=== PATIENT | female | born 1995 | race Caucasian/White ===

== ENCOUNTER 2017-04-29 11:27 | Emergency (ER) | END 2017-04-29 15:38 | disposition home or self-care (01) ==

== ENCOUNTER 2017-11-26 04:38 | Emergency (ER) | END 2017-11-26 05:29 | disposition home or self-care (01) ==

== ENCOUNTER 2017-12-03 19:37 | Emergency (ER) | END 2017-12-03 22:20 | disposition home or self-care (01) ==

== ENCOUNTER 2017-12-16 12:15 | Emergency (ER) | END 2017-12-16 14:08 | disposition home or self-care (01) ==

== ENCOUNTER 2018-01-20 19:53 | Emergency (ER) | END 2018-01-20 21:17 | disposition home or self-care (01) ==

== ENCOUNTER 2018-04-18 10:54 | Emergency (ER) | END 2018-04-18 11:30 | disposition home or self-care (01) ==

== ENCOUNTER 2018-07-08 09:45 | Emergency (ER) | payer OTHER ==
[~2018-07-08] VITALS: Ht 167.6 cm; Wt 53.0 kg
[~2018-07-08 09:45] MED LIST: ACET500C5 PO; AMOX1TAB10 PO; CEFA500T PO; CEPH-443 PO; CIPR500T4 PO; DIC20 PO; FLUT9.9S NASAL; NITR-58 PO; ONDA4TAB14 PO; OSEL75CA23 PO; PHEN-538 PO; PSEU-79 PO; PSEU120T11 PO
[2018-07-08 09:56] VITALS: Ht 167.6 cm; Wt 53.0 kg
[2018-07-08] MEDS ORDERED: ONDANSETRON 4 MG INJ IV STA (10:31)
[2018-07-08] MEDS ORDERED: LIDOCAINE/MYLANTA 40 ML BTL PO STA (10:31)
[2018-07-08] MEDS ORDERED: SOD CHLORIDE 0.9% 1,000 ML IV STA (10:31)
[2018-07-08] MEDS ORDERED: FAMOTIDINE 20 MG INJ IV STA (10:31)
--- NOTE | 2018-07-08 10:46 | ERD ---
ER Documentation Chief Complaint Chief Complaint Complains of abdominal pain x 3 days HPI This is a 23-year-old female with a nonsignificant past medical history presents ED with epigastric abdominal pain that is been off and on for the past 2 months. Patient states that it has worsened in the past 4 days. Patient states the pain is constant and rates it at a 5 out of 10 pain. Patient was seen by her front office representative Dr. Jiménez last week and was prescribed clarithromycin, amoxicillin and Biaxin for H. pylori infection. The H. pylori infection was confirmed by her front office representative. Patient has not called her gastroent erologist since pain is been worsening. Admits to nausea with multiple episodes of vomiting as well as nonbloody diarrhea. Denies fever, chills, cough, congestion, runny nose, hematemesis, hemoptysis, melena, hematochezia, constipation. Is due to have an endoscopy at the end of October. No known drug allergies. ROS All systems reviewed and are negative except as per history of present illness. Medications Home Meds Active Scripts Fluticasone Propionate (Flonase Allergy Relief) 9.9 Ml [place].susp, 1 SPRAY NASAL DAILY, #1 BOTTLE TO EACH NOSTRIL Prov:YUMIKO DAMON PA-C 04/18/18 Pseudoephedrine Hcl* (Suphedrin*) 30 Mg Tablet, 30 MG PO Q6 PRN for CONGESTION, #30 TAB Prov:YUMIKO DAMON PA-C 04/18/18 Amoxicillin/Potassium Clav (Amox-Clav 875-125 mg Tablet) 875-125 mg Tab, 1 TAB PO BID for 7 Days, #14 TAB Prov:YUMIKO DAMON PA-C 04/18/18 Nitrofurantoin Monohyd Macrocr* (Macrobid*) 100 Mg Capsr, 100 MG PO BID for 5 Days, CAP Prov:OZIEL HERNÁNDEZ PA-C 01/20/18 Pseudoephedrine Hcl (Sudafe 12-Hour) 120 Mg Tablet.er, 120 MG PO BID PRN for CONGESTION for 7 Days, TAB.SA Prov:MYLES WAYNE PA-C 12/16/17 Amoxicillin/Potassium Clav (Amox-Clav 875-125 mg Tablet) 875-125 mg Tab, 1 TAB PO BID for 7 Days, #14 TAB Prov:MYLES WAYNE PA-C 12/16/17 Cefaclor (Cefaclor ER) 500 Mg Tab.sr.12h, 500 MG PO BID for 7 Days, #14 TAB Prov:RYNE SINGER MD 12/05/17 Nitrofurantoin Monohyd Macrocr* (Macrobid*) 100 Mg Capsr, 100 MG PO BID for 14 Days, CAP Prov:RYNE SINGER MD 12/05/17 Cephalexin* (Keflex*) 500 Mg Capsule, 500 MG PO QID for 5 Days, CAP Prov:SARAH BAR PA-C 12/03/17 Ondansetron (Ondansetron Odt) 4 Mg Tab.rapdis, 4 MG PO Q6H PRN for NAUSEA AND/OR VOMITING, #20 TAB Prov:MANUEL GRAYSON NP 11/26/17 Dicyclomine HCl (Dicyclomine HCl) 20 Mg Tablet, 1 TAB PO Q6, #20 Prov:MANUEL GRAYSON NP 11/26/17 Phenazopyridine Hcl* (Pyridium*) 200 Mg Tab, 200 MG PO TID PRN for URINARY PAIN, #6 TAB Prov:MANUEL GRAYSON NP 11/26/17 Ciprofloxacin Hcl* (Ciprofloxacin Hcl*) 500 Mg Tablet, 500 MG PO BID for 10 Days, TAB Prov:MANUEL GRAYSON NP 11/26/17 Oseltamivir Phosphate* (Tamiflu*) 75 Mg Capsule, 75 MG PO BID for 5 Days, CAP Prov:MAAME SOSA PA-C 04/29/17 Acetaminophen* (Tylophen*) 500 Mg Capsule, 1 CAP PO Q6H PRN for PAIN AND OR ELEVATED TEMP, #20 CAP Prov:MAAME SOSA PA-C 04/29/17 Ondansetron (Ondansetron Odt) 4 Mg Tab.rapdis, 4 MG PO Q6H PRN for NAUSEA AND/OR VOMITING, #10 TAB Prov:MAAME SOSA PA-C 04/29/17 Allergies Allergies: Coded Allergies: No Known Allergy (Unverified , 04/18/18) PMhx/Soc History of Surgery: Yes (nasal surgery) Hx Respiratory Disorders: Yes (asthma) Hx Miscellaneous Medical Probl: Yes (gastritis) Hx Alcohol Use: No Hx Substance Use: No Hx Tobacco Use: No FmHx Family History: No diabetes Physical Exam Vitals Vital Signs Date Temp Pulse Resp B/P (MAP) Pulse Ox O2 O2 Flow FiO2 Time Delivery Rate 07/08/18 98.1 94 20 120/92 100 09:56 (101) Physical Exam Physical Exam Vitals signs: Reviewed by me. General: Well developed, well nourished, in no acute distress. Patient is awake and alert. Head: Normocephalic, atraumatic. Eyes: Normal conjunctiva, Pupils PERRLA, EOM intact grossly ENT: Pharynx is clear, Moist mucous membranes, external ears, nose and mouth normal Neck: Supple, no masses, lymphadenopathy or JVD Respiratory: Clear to auscultation bilaterally with no wheezing, rhonchi, rales, no distress Cardiovascular: RRR, no murmurs, rubs, or gallops Abdominal: Soft, nondistended, no peritoneal signs, no rigidity, no surgical abdomen, bowel sounds present all 4 quadrants, mild tenderness palpation in epigastric region, nontender to palpation all the quadrants, Brower sign negative, McBurney's point nontender, no rebound tendernes Back: No midline tenderness. No flank tenderness Neurologic: Alert and oriented, moving all extremities, normal speech, no focal weakness, no cerebellar signs. Normal mentation Skin: warm and dry, No rash Psych: Normal mood Result Diagram: 07/08/18 1127 07/08/18 1127 Results 24 hrs Laboratory Tests Test 07/08/18 11:01 07/08/18 11:05 07/08/18 11:27 POC Beta HCG, Qualitative NEGATIVE Urine Color YELLOW Urine Clarity CLEAR Urine pH 7.0 Urine Specific [place] 1.014 Urine Ketones NEGATIVE mg/dL Urine Nitrite NEGATIVE mg/dL Urine Bilirubin NEGATIVE mg/dL Urine Urobilinogen NEGATIVE mg/dL Urine Leukocyte Esterase NEGATIVE Renee/ul Urine Hemoglobin NEGATIVE mg/dL Urine Glucose NEGATIVE mg/dL Urine Total Protein NEGATIVE mg/dl White Blood Count 7.2 10^3/ul Red Blood Count 4.59 10^6/ul Hemoglobin 12.5 g/dl Hematocrit 38.6 % Mean Corpuscular Volume 84.1 fl Mean Corpuscular Hemoglobin 27.2 pg Mean Corpuscular 32.4 g/dl Hemoglobin Concent Red Cell Distribution Width 13.4 % Platelet Count 305 10^3/UL Mean Platelet Volume 9.9 fl Immature Granulocytes % 0.400 % Neutrophils % 65.7 % Lymphocytes % 23.4 % Monocytes % 9.5 % Eosinophils % 0.4 % Basophils % 0.6 % Nucleated Red Blood Cells % 0.0 /100WBC Immature Granulocytes # 0.030 10^3/ul Neutrophils # 4.7 10^3/ul Lymphocytes # 1.7 10^3/ul Monocytes # 0.7 10^3/ul Eosinophils # 0.0 10^3/ul Basophils # 0.0 10^3/ul Nucleated Red Blood Cells # 0.0 10^3/ul Sodium Level 142 mmol/L Potassium Level 4.2 mmol/L Chloride Level 103 mmol/L Carbon Dioxide Level 26 mmol/L Anion Gap 13 Blood Urea Nitrogen 9 mg/dl Creatinine 0.80 mg/dl Est Glomerular Filtrat > 60 mL/min Rate mL/min Glucose Level 91 mg/dl Calcium Level 9.9 mg/dl Total Bilirubin 0.5 mg/dl Direct Bilirubin 0.00 mg/dl Indirect Bilirubin 0.5 mg/dl Aspartate Amino 20 IU/L Transf (AST/SGOT) Alanine 9 IU/L Aminotransferase (ALT/SGPT) Alkaline Phosphatase 56 IU/L Total Protein 8.2 g/dl Albumin 4.6 g/dl Globulin 3.60 g/dl Albumin/Globulin Ratio 1.27 Lipase 64 U/L Current Medications Medications Dose Sig/Chao Start Time Status Last (Trade) Ordered Route PRN Stop Time Admin Dose Reason Admin Sodium 1,000 ml @ Q1H STAT 07/08/18 DC 07/08/18 Chloride 1,000 mls/hr IV 10:31 11:22 07/08/18 11:30 Ondansetron 4 mg ONCE STAT 07/08/18 DC 07/08/18 HCl (Zofran IV 10:31 11:21 Inj) 07/08/18 10:32 Famotidine 20 mg ONCE STAT 07/08/18 DC 07/08/18 (Pepcid Iv) IV 10:31 11:21 07/08/18 10:32 40 ml ONCE STAT 07/08/18 DC 07/08/18 Miscellaneous PO 10:31 11:21 Medication 07/08/18 10:32 (Gi Cocktail (2)) Procedures/MDM EKG, MONITORS, & DIAGNOSTIC IMAGING: [place] [id number] Radiology Main Line: [phone] DIAGNOSTIC IMAGING REPORT Patient: WING ROJAS : 1995 Age: 23 Sex: F MR #: [id number] DOS: 07/08/18 1031 Ordering MD: KEESHA MERLOS PA-C Location: [facility] Room/Bed: PROCEDURE: US Abdomen. CLINICAL INDICATION: abdominal pain TECHNIQUE: Multiple real-time images were acquired of the patient's right upper quadrant abdomen and retroperitoneum utilizing a high resolution transducer. COMPARISON: None FINDINGS: The liver demonstrates normal echogenicity. The liver is normal in size and no focal solid lesions are seen. The liver measures 14.9 cm in length. The portal vein is patent with normal direction of flow. No intrahepatic biliary dilatation is seen. No gallstones are identified within the gallbladder. There is no pericholecystic fluid or gallbladder wall thickening. The common bile duct measures 1.4 mm in maximal dimension. The visualized portions of the pancreas are unremarkable. The tail of the pancreas is not seen. No free fluid is identified. The right kidney is normal in size, and demonstrate normal echogenicity and cortical thickness. The right kidney measures 10.5 cm in long dimension. There is no evidence of hydronephrosis. There are no kidney stones. RPTAT: AA IMPRESSION: Unremarkable right upper quadrant abdominal ultrasound. .Jonas Jones MD, MD Date Time Electronically viewed and signed by .Jonas Jones MD, MD on 07/08/2018 11:13 .S/ CC: KEESHA MERLOS PA-C [id number] LAB INTERPRETATION: CBC shows no evidence of hemorrhage or infection Chemistry shows no evidence of significant electrolyte abnormalities or renal insufficiency Liver function test shows no evidence of acute biliary or hepatic dysfunction Urinalysis unremarkable. Urine negative Lipase shows no evidence of acute pancreatitis ER COURSE: The patient was given [IV normal saline, Pepcid, GI cocktail The medication was well tolerated and the patient reports improvement in symptoms. The patient was stable throughout ED course. I kept the patient and/or family informed of laboratory and diagnostic imaging results throughout the emergency room course. The patient was promptly evaluated and a treatment plan was devised based on H&P and other data. This plan was discussed with the patient who agreed and had no further questions or concerns prior to discharge. MEDICAL DECISION MAKING: This is a 23-year-old female presents ED with complaints of epigastric abdominal pain that is been off and on for the past 2 months. Patient's epigastric pain worsened over the past 4 days. Patient was diagnosed with H. pylori and started on clarithromycin, amoxicillin and Biaxin by her GI doctor last week. test is negative. Considered causes of female-specific abdominal pain including pelvic inflammatory disease, tubo-ovarian abscess, Veib-Dyzg-Httgrk, and ovarian torsion. But given location of abdominal pain doubt PID, tubo- ovarian abscess, ovarian torsion, ectopic . Also considered causes of abdominal pain that are not gender-specific (e.g., appendicitis, volvulus, small bowel obstruction, mesenteric adenitis, acute cholecystitis/choledocholithiasis and other biliary pathology, etc.). I believe the patient's epigastric abdominal pain is likely related to her H. pylori infection. Advised patient fo llow-up with her front office representative. Patient well-appearing with normal vital signs. No peritoneal signs and abdomen benign on multiple repeat examinations. Pt well hydrated. Laboratory testing and imaging here reviewed and normal. Patient given strict return precautions for worsening pain, inability to eat/drink, fevers (temperature over 100.4F), or other concerns. Prior to discharge all questions answered. She agrees with treatment plan and understands strict return precautions. Follow-up for repeat abdominal exam within 12 hours. DISPOSITION PLAN: We discussed follow up with the patient's primary care doctor within 24 to 48 hours. Patient counseled regarding my diagnostic impression and care plan. Prior to discharge all questions answered. Pt agrees with treatment plan and understands strict return precautions. Precautionary instructions provided including instructions to return to the ER if not improving or for any worsening or changing symptoms or concerns. SPECIALIST FOLLOW UP RECOMMENDED: GI Patient has been advised to follow up with primary care in 1-2 days. Disclaimer: Inadvertent spelling and grammatical errors are likely due to EHR/dictation software use and do not reflect on the overall quality of patient care. Also, please note that the electronic time recorded on this note does not necessarily reflect the actual time of the patient encounter. Departure Diagnosis: Primary Impression: Abdominal pain Abdominal location: epigastric Qualified Codes: R10.13 - Epigastric pain Condition: Stable Patient Instructions: Epigastric Pain (Uncertain Cause), Gastritis Vs. Ulcer, Peptic Ulcer (H. Pylori Infection Only) Referrals: VIRIDIANA GIRON MD,PRADEEP JONES MD, MD,TAYE Goel MD [facility] Additional Instructions: Patient advised to return to the ED immediately for new or worsening symptoms. Patient advised to follow up with primary care provider in the next 24-48 hours. Patient verbalized understanding and agrees with treatment plan and course of action. If patient has no primary care they may follow up with one of the [facility] listed on the following page or one of the options listed below [facility] + [facility] [address] [place] [address] or [facility] [address] [place] [address] or [facility] [address] [place] [address] KEESHA MERLOS PA-C Jul 08, 2018 10:46
[2018-07-08] MEDS ORDERED: FAMO-96 PO (12:20)
[2018-07-08] MEDS ORDERED: ONDA4TAB14 PO (12:50)
== END 2018-07-08 12:51 | disposition home or self-care (01) ==
LOC: FTE 09:45
DX: R10.13 Epigastric pain (principal); J45.909 Unspecified asthma, uncomplicated; R11.2 Nausea with vomiting, unspecified; R10.2 Pelvic and perineal pain
CPT/HCPCS: 36415; 76705; 80053; 81003; 81025; 83690; 85025; 96361; 96374; 96375; J2405; J7030; Z7502; Z7610